=== PATIENT | male | born 2000 | race Caucasian/White ===

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

== ENCOUNTER → 2021-02-03 14:43 | Outpatient (BNVA) | payer MEDICAID, SELFPAY | PROVIDERS: Visit Provider Nurse Practitioner Family | DX: L60.0 Ingrowing nail (principal) | CPT/HCPCS: 87070; 87075; 87077; 87184; 87205 ==

== ENCOUNTER → 2021-02-24 09:18 | Outpatient (BNVA) | payer MEDICAID, SELFPAY | PROVIDERS: Visit Provider Specialist | DX: G40.A09 Absence epileptic syndrome, not intractable, without status epilepticus (principal) | CPT/HCPCS: 99215 ==

== ENCOUNTER → 2021-03-16 12:57 | Outpatient (BNVA) | payer MEDICAID, SELFPAY | PROVIDERS: Visit Provider Specialist | DX: G40.909 Epilepsy, unspecified, not intractable, without status epilepticus (principal); G40.A09 Absence epileptic syndrome, not intractable, without status epilepticus | CPT/HCPCS: 95816 ==

== ENCOUNTER → 2021-04-06 10:41 | Outpatient (BNVA) | payer MEDICAID, SELFPAY | PROVIDERS: Visit Provider Specialist | DX: G40.A09 Absence epileptic syndrome, not intractable, without status epilepticus (principal) | CPT/HCPCS: 99214 ==